=== PATIENT | male | born 1950 | race Caucasian/White ===

== ENCOUNTER 2019-03-16 10:13 | Emergency (ER) | payer MEDICARE ==
[~2019-03-16] VITALS: Ht 172.7 cm; Wt 81.8 kg
[~2019-03-16 10:13] MED LIST: CEPH-357 PO; CLIN150C2 PO; LITH600C4 PO; NORCO10T PO; PROP425C PO; TRAZ-91 PO
[2019-03-16] MEDS ORDERED: diltiazem 5mg/ml 5ml inj. IV ONE (10:35)
[2019-03-16 11:13] LABS: BASOPHILS % (AUTO) 0.5 % (0-1); EOSINOPHILS # (AUTO) 0.2 X10'3 (0-0.9); HEMATOCRIT 39.5 % (42.0-52.0); HEMOGLOBIN 13.6 g/dl (14.0-17.9); LYMPHOCYTES # (AUTO) 1.8 X10'3 (1.1-4.8); LYMPHOCYTES % (AUTO) 25.4 % (21-51); MEAN CORPUSCULAR HEMOGLOBIN 29.3 PG (27.0-31.0); MEAN CORPUSCULAR HGB CONC 34.5 g/dL (33.0-36.5); MEAN PLATELET VOLUME 7.3 FL (7.4-10.4); MONOCYTES # (AUTO) 0.6 X10'3 (0-0.9); MONOCYTES % (AUTO) 9.1 % (2-12); NEUTROPHILS # (AUTO) 4.3 X10'3 (1.8-7.7); PLATELET COUNT 248 X10'3 (140-440); RED BLOOD COUNT 4.65 X10'6 (4.70-6.10); RED CELL DISTRIBUTION WIDTH 13.9 % (11.5-14.5)
[2019-03-16 11:30] LABS: ALANINE AMINOTRANSFERASE 29 U/L (12-78); ALBUMIN 3.8 G/DL (3.4-5.0); ALBUMIN/GLOBULIN RATIO 1.2 (1.1-1.5); ALKALINE PHOSPHATASE 55 IU/L (46-116); ANION GAP 11 (8-16); ASPARTATE AMINO TRANSFERASE 16 U/L (10-37); BILIRUBIN,TOTAL 0.2 MG/DL (0.1-1.0); BLOOD UREA NITROGEN 34 MG/DL (7-18); BUN/CREATININE RATIO 19.3 (5.4-32.0); CALCIUM 9.8 MG/DL (8.5-10.1); CHLORIDE 109 MMOL/L (99-107); CREATININE 1.76 MG/DL (0.60-1.10); GLUCOSE 106 MG/DL (70-104); POTASSIUM 4.5 MMOL/L (3.5-5.1); SODIUM 142 MMOL/L (135-145); TOTAL CARBON DIOXIDE 22.2 MMOL/L (24-32); TOTAL PROTEIN 7.1 G/DL (6.4-8.2); eGFR 39 ML/MIN
[2019-03-16 11:31] LABS: PARTIAL THROMBOPLASTIN TIME 28 SECONDS (22-32)
[2019-03-16 11:36] LABS: MAGNESIUM 1.7 MG/DL (1.5-2.4)
[2019-03-16 12:04] VITALS: BP 142/92
== END 2019-03-16 12:05 | disposition home or self-care (01) ==
LOC: ER 10:13
DX: I48.0 Paroxysmal atrial fibrillation (principal); Z88.0 Allergy status to penicillin; Z88.2 Allergy status to sulfonamides; Z88.5 Allergy status to narcotic agent; Z79.2 Long term (current) use of antibiotics; Z79.899 Other long term (current) drug therapy; Z98.890 Other specified postprocedural states
CPT/HCPCS: 36415; 71045; 80053; 83735; 83880; 84443; 85025; 85610; 85730; 93005; 96374; 99284; J3490

== ENCOUNTER 2019-09-18 19:32 | Emergency (ER) | payer MEDICARE ==
[~2019-09-18] VITALS: Ht 172.7 cm; Wt 80.0 kg
[2019-09-18] MEDS ORDERED: diltiazem 5mg/ml 5ml inj. IV ONE ×2 (20:00→20:40)
[2019-09-18 20:21] LABS: BASOPHILS # (AUTO) 0.1 X10'3 (0-0.2); BASOPHILS % (AUTO) 0.8 % (0-1); EOSINOPHILS # (AUTO) 0.4 X10'3 (0-0.9); EOSINOPHILS % (AUTO) 4.8 % (0-6); HEMATOCRIT 42.2 % (42.0-52.0); HEMOGLOBIN 14.6 g/dl (14.0-17.9); LYMPHOCYTES # (AUTO) 2.2 X10'3 (1.1-4.8); LYMPHOCYTES % (AUTO) 25.5 % (21-51); MEAN CORPUSCULAR HEMOGLOBIN 29.9 PG (27.0-31.0); MEAN CORPUSCULAR HGB CONC 34.6 g/dL (33.0-36.5); MEAN CORPUSCULAR VOLUME 86.6 FL (78-98); MONOCYTES # (AUTO) 0.8 X10'3 (0-0.9); MONOCYTES % (AUTO) 8.6 % (2-12); NEUTROPHILS # (AUTO) 5.3 X10'3 (1.8-7.7); NEUTROPHILS % (AUTO) 60.3 % (42-75); PLATELET COUNT 217 X10'3 (140-440); RED BLOOD COUNT 4.88 X10'6 (4.70-6.10); RED CELL DISTRIBUTION WIDTH 14.5 % (11.5-14.5); WHITE BLOOD COUNT 8.8 X10'3 (4.5-11.0)
[2019-09-18 20:35] LABS: PARTIAL THROMBOPLASTIN TIME 27 SECONDS (22-32)
[2019-09-18 20:39] LABS: ALANINE AMINOTRANSFERASE 22 U/L (12-78); ALBUMIN 3.8 G/DL (3.4-5.0); ALBUMIN/GLOBULIN RATIO 1.1 (1.1-1.5); ALKALINE PHOSPHATASE 62 IU/L (46-116); ANION GAP 12 (8-16); ASPARTATE AMINO TRANSFERASE 14 U/L (10-37); BILIRUBIN,TOTAL 0.2 MG/DL (0.1-1.0); BLOOD UREA NITROGEN 32 MG/DL (7-18); BUN/CREATININE RATIO 19.2 (5.4-32.0); CALCIUM 8.9 MG/DL (8.5-10.1); CHLORIDE 111 MMOL/L (99-107); CREATININE 1.67 MG/DL (0.60-1.10); GLUCOSE 130 MG/DL (70-104); SODIUM 146 MMOL/L (135-145); TOTAL CARBON DIOXIDE 22.8 MMOL/L (24-32); TOTAL PROTEIN 7.3 G/DL (6.4-8.2); eGFR 41 ML/MIN
[2019-09-18 20:48] LABS: POTASSIUM 4.1 MMOL/L (3.5-5.1)
--- NOTE | 2019-09-18 21:45 | NUR ---
Patient converted from spontaniously from A-fibb Dr. Mohan.
[2019-09-18] MEDS ORDERED: metoprolol succinate 25mg (24-HOUR) SR. Tablet PO SCH (21:55)
[2019-09-18 22:14] VITALS: BP 101/65
== END 2019-09-18 22:20 | disposition home or self-care (01) ==
LOC: ER 19:32
DX: I48.20 Chronic atrial fibrillation, unspecified (principal); Z88.1 Allergy status to other antibiotic agents; Z88.0 Allergy status to penicillin; Z88.2 Allergy status to sulfonamides; Z88.5 Allergy status to narcotic agent; Z79.899 Other long term (current) drug therapy
CPT/HCPCS: 36415; 71045; 80053; 84484; 85025; 85610; 85730; 93005; 99284; J3490

== ENCOUNTER 2019-12-10 14:02 | Emergency (ER) | payer MEDICARE ==
[~2019-12-10] VITALS: Ht 172.7 cm; Wt 84.1 kg
[2019-12-10 15:05] LABS: BASOPHILS # (AUTO) 0.1 X10'3 (0-0.2); BASOPHILS % (AUTO) 0.8 % (0-1); EOSINOPHILS # (AUTO) 0.3 X10'3 (0-0.9); EOSINOPHILS % (AUTO) 3.4 % (0-6); HEMATOCRIT 41.4 % (42.0-52.0); HEMOGLOBIN 14.2 g/dl (14.0-17.9); LYMPHOCYTES # (AUTO) 1.9 X10'3 (1.1-4.8); LYMPHOCYTES % (AUTO) 25.4 % (21-51); MEAN CORPUSCULAR HEMOGLOBIN 29.9 PG (27.0-31.0); MEAN CORPUSCULAR HGB CONC 34.4 g/dL (33.0-36.5); MEAN CORPUSCULAR VOLUME 86.9 FL (78-98); MONOCYTES # (AUTO) 0.6 X10'3 (0-0.9); MONOCYTES % (AUTO) 7.5 % (2-12); NEUTROPHILS # (AUTO) 4.8 X10'3 (1.8-7.7); NEUTROPHILS % (AUTO) 62.9 % (42-75); PLATELET COUNT 235 X10'3 (140-440); RED BLOOD COUNT 4.76 X10'6 (4.70-6.10); RED CELL DISTRIBUTION WIDTH 14.7 % (11.5-14.5); WHITE BLOOD COUNT 7.7 X10'3 (4.5-11.0)
[2019-12-10 15:20] LABS: ALANINE AMINOTRANSFERASE 19 U/L (12-78); ALBUMIN/GLOBULIN RATIO 1.3 (1.1-1.5); ALKALINE PHOSPHATASE 61 IU/L (46-116); ANION GAP 6 (8-16); ASPARTATE AMINO TRANSFERASE 11 U/L (10-37); BILIRUBIN,TOTAL 0.2 MG/DL (0.1-1.0); BLOOD UREA NITROGEN 28 MG/DL (7-18); BUN/CREATININE RATIO 19.9 (5.4-32.0); CALCIUM 9.3 MG/DL (8.5-10.1); CHLORIDE 111 MMOL/L (99-107); CREATININE 1.41 MG/DL (0.60-1.10); GLUCOSE 88 MG/DL (70-104); POTASSIUM 4.7 MMOL/L (3.5-5.1); SODIUM 142 MMOL/L (135-145); TOTAL CARBON DIOXIDE 25.4 MMOL/L (24-32); TOTAL PROTEIN 7.2 G/DL (6.4-8.2); eGFR 50 ML/MIN
--- NOTE | 2019-12-10 15:52 | NUR ---
PT >89.9, INR >8.[address] GUTIERREZ AND CHARGE NURSE JONATHAN HAN.
[2019-12-10 15:54] LABS: PARTIAL THROMBOPLASTIN TIME 70 SECONDS (22-32)
[2019-12-10 17:05] VITALS: BP 126/92
[2019-12-10] MEDS ORDERED: phytonadione inj. 10 MG in normal saline 100ml IV soln 99 ML IV ONE (17:10)
[2019-12-10] MEDS ORDERED: phytonadione 10 MG/1 ML amp PO ONE (17:30)
== END 2019-12-10 17:54 | disposition home or self-care (01) ==
LOC: ER 14:03
DX: T45.511A Poisoning by anticoagulants, accidental (unintentional), initial encounter (principal); I48.91 Unspecified atrial fibrillation; Z88.1 Allergy status to other antibiotic agents; Z88.0 Allergy status to penicillin; Z88.2 Allergy status to sulfonamides; Z88.5 Allergy status to narcotic agent; Z79.899 Other long term (current) drug therapy; Y92.89 Other specified places as the place of occurrence of the external cause
CPT/HCPCS: 36415; 80053; 85025; 85610; 85730; 99284; J3430

== ENCOUNTER 2020-01-19 14:49 | Emergency (ER) | payer MEDICARE ==
[~2020-01-19] VITALS: Ht 172.7 cm; Wt 81.8 kg
[2020-01-19 15:19] VITALS: BP 209/93
[2020-01-19] MEDS ORDERED: ketorolac trometh. 30mg/ml inj. IM ONE (15:25)
[2020-01-19] MEDS ORDERED: LIDOcaine 5% patch TP SCH (15:25)
[2020-01-19] MEDS ORDERED: proCHLORperazine 10 MG/2 ml inj IM ONE (15:25)
[2020-01-19] MEDS ORDERED: HYDROcodone/acetaminophen 5mg/325mg tablet PO ONE (15:25)
[2020-01-19] MEDS ORDERED: dexamethasone 4mg tablet PO ONE (15:25)
[2020-01-19] MEDS ORDERED: morphine 4 MG/ML inj SYRINge IM ONE (16:05)
== END 2020-01-19 16:48 | disposition home or self-care (01) ==
LOC: ER 14:51
DX: R51 Headache (principal); H53.8 Other visual disturbances; I48.91 Unspecified atrial fibrillation; Z88.2 Allergy status to sulfonamides; Z88.0 Allergy status to penicillin; Z88.5 Allergy status to narcotic agent; Z88.8 Allergy status to other drugs, medicaments and biological substances; Z79.2 Long term (current) use of antibiotics; Z79.899 Other long term (current) drug therapy; Z98.890 Other specified postprocedural states
CPT/HCPCS: 96372; 99284; J0780; J1885; J2270

== ENCOUNTER 2021-02-17 14:41 | Outpatient (CLI) | payer MEDICARE | END 2021-02-17 23:59 | disposition home or self-care (01) | LOC: RAD 14:41 | DX: R13.12 Dysphagia, oropharyngeal phase (principal); G25.0 Essential tremor; R47.1 Dysarthria and anarthria | CPT/HCPCS: 74230 ==

== ENCOUNTER 2022-11-22 14:48 | Observation (INO) | payer MEDICARE ==
[~2022-11-22] VITALS: Ht 172.7 cm; Wt 75.0 kg
[~2022-11-22 14:48] MED LIST changes: +ACET-812 PO; +AMIO200T67 PO; -CEPH-357 PO; -CLIN150C2 PO; +GABA1CAP PO; +GABA300C PO; -LITH600C4 PO; +MULT-1085 PO; -NORCO10T PO; -PROP425C PO; +TRAZ-251 PO; -TRAZ-91 PO; +WARF3TAB56 PO; +WARF6TAB49 PO
[2022-11-22 16:10] LABS: ALANINE AMINOTRANSFERASE 11 U/L (12-78); ALBUMIN 3.9 G/DL (3.4-5.0); ALBUMIN/GLOBULIN RATIO 1.1 (1.1-1.5); ALKALINE PHOSPHATASE 68 IU/L (46-116); ANION GAP 10 (8-16); ASPARTATE AMINO TRANSFERASE 19 U/L (10-37); BILIRUBIN,TOTAL 0.3 MG/DL (0.1-1.0); BLOOD UREA NITROGEN 29 MG/DL (7-18); BUN/CREATININE RATIO 19.6 (5.4-32.0); CALCIUM 9.2 MG/DL (8.5-10.1); CHLORIDE 104 MMOL/L (99-107); CREATININE 1.48 MG/DL (0.60-1.10); GLUCOSE 120 MG/DL (70-104); POTASSIUM 4.2 MMOL/L (3.5-5.1); SODIUM 137 MMOL/L (135-145); TOTAL PROTEIN 7.4 G/DL (6.4-8.2); eGFR 47 ML/MIN
[2022-11-22 16:16] LABS: BASOPHILS # (AUTO) 0.1 X10'3 (0-0.2); BASOPHILS % (AUTO) 0.6 % (0-1); EOSINOPHILS # (AUTO) 0.3 X10'3 (0-0.9); EOSINOPHILS % (AUTO) 3.5 % (0-6); HEMATOCRIT 39.6 % (42.0-52.0); HEMOGLOBIN 13.4 g/dl (14.0-17.9); LYMPHOCYTES # (AUTO) 2.1 X10'3 (1.1-4.8); LYMPHOCYTES % (AUTO) 22.6 % (21-51); MEAN CORPUSCULAR HEMOGLOBIN 30.2 PG (27.0-31.0); MEAN CORPUSCULAR HGB CONC 33.7 g/dL (33.0-36.5); MEAN CORPUSCULAR VOLUME 89.7 FL (78-98); MEAN PLATELET VOLUME 7.2 FL (7.4-10.4); MONOCYTES # (AUTO) 0.6 X10'3 (0-0.9); MONOCYTES % (AUTO) 6.7 % (2-12); NEUTROPHILS # (AUTO) 6.3 X10'3 (1.8-7.7); NEUTROPHILS % (AUTO) 66.6 % (42-75); PLATELET COUNT 284 X10'3 (140-440); RED BLOOD COUNT 4.42 X10'6 (4.70-6.10); RED CELL DISTRIBUTION WIDTH 14.7 % (11.5-14.5); WHITE BLOOD COUNT 9.4 X10'3 (4.5-11.0)
[2022-11-23] VITALS (7 sets, daily range): BP systolic 114–144; BP diastolic 64–77
[2022-11-23] MEDS ORDERED: aspirin 325mg tablet PO ONE (04:45)
[2022-11-23] MEDS ORDERED: potassium Cl 20 mEq SR tablet PO PRN ×2 (06:20)
[2022-11-23] MEDS ORDERED: acetaminophen 325mg tablet PO PRN (06:20)
[2022-11-23] MEDS ORDERED: magnesium 4gm in 100ml NS 100 ML IV PRN (06:20)
[2022-11-23] MEDS ORDERED: metoprolol tartrate 1mg/ml inj IV PRN (06:20)
[2022-11-23] MEDS ORDERED: regadenoson 0.4mg/5ml syringe IV PRN (06:20)
[2022-11-23] MEDS ORDERED: magnesium Cl slow-release 64mg tablet PO PRN (06:20)
[2022-11-23] MEDS ORDERED: mag hydrox/Alum hydrox/simeth 30ml oral suspension PO PRN (06:20)
[2022-11-23] MEDS ORDERED: ondansetron/PF 4mg/2ml inj IV PRN (06:20)
[2022-11-23] MEDS ORDERED: aminophylline 250mg/10ml inj. IV PRN (06:20)
[2022-11-23] MEDS ORDERED: magnesium hydroxide 30ml (MOM) UD suspension PO PRN (06:20)
[2022-11-23] MEDS ORDERED: nitroGLYCERIN 0.4mg SUBLingual tab SL PRN (06:20)
[2022-11-23] MEDS ORDERED: potassium Cl 40MEQ/1/2NS 520ml 520 ML IV PRN (06:20)
[2022-11-23] MEDS ORDERED: docusate sod 100mg capsule PO SCH (08:00)
[2022-11-23] MEDS ORDERED: K and/or MAG REPLACEMENT MC SCH (08:00)
[2022-11-23 08:15] LABS: MAGNESIUM 2.1 MG/DL (1.5-2.4); POTASSIUM 3.8 MMOL/L (3.5-5.1)
[2022-11-23] MEDS ORDERED: VITA0.4T18 PO (11:56)
[2022-11-23] MEDS ORDERED: CARB1TAB60 PO (11:56)
[2022-11-23] MEDS ORDERED: MULT-1172 PO (11:56)
[2022-11-23] MEDS ORDERED: METH-375 PO (11:56)
[2022-11-23] MEDS ORDERED: AMLO-708 PO (11:56)
[2022-11-23] MEDS ORDERED: CYCL-1 PO (11:56)
[2022-11-23] MEDS ORDERED: CLON-368 PO (11:56)
[2022-11-23] MEDS ORDERED: TRAZ-256 PO (11:56)
[2022-11-23] MEDS ORDERED: LAMO25TA5 PO (11:56)
[2022-11-23] MEDS ORDERED: PROP20TA6 PO (11:56)
[2022-11-23] MEDS ORDERED: WARF3TAB56 PO ×2 (12:03)
== END 2022-11-23 15:51 | disposition home or self-care (01) ==
LOC: ER 14:48 → ED HOLD 11-23 06:20
PROVIDERS: ADMIT Internal Medicine; ATTEND Internal Medicine
DX: R07.89 Other chest pain (principal); I10 Essential (primary) hypertension; F41.9 Anxiety disorder, unspecified; I48.91 Unspecified atrial fibrillation; E05.90 Thyrotoxicosis, unspecified without thyrotoxic crisis or storm; F31.9 Bipolar disorder, unspecified; G20 Parkinson's disease; Z79.899 Other long term (current) drug therapy; Z88.0 Allergy status to penicillin; Z88.1 Allergy status to other antibiotic agents; Z88.2 Allergy status to sulfonamides
CPT/HCPCS: 36415; 71045; 78452; 80053; 80178; 83735; 83880; 84132; 84484; 85025; 85610; 93005; 93017; 99285; A9500; G0378; J2785